=== PATIENT | female | born 1950 | race African-American/Black ===

== ENCOUNTER 2016-11-21 21:20 | Emergency (ER) | payer MEDICARE, MEDICAID ==
[~2016-11-21] VITALS: Ht 167.6 cm; Wt 95.3 kg
[~2016-11-21 21:20] MED LIST: ATEN50TA PO; HYDR25TA PO; LISI10TA5 PO; POTA10TA69 PO
[2016-11-21] MEDS ORDERED: ACETAMINOPHEN 325MG TABLET PO ONE (22:30)
[2016-11-22] MEDS ORDERED: BACITRACIN ZINC OINT UDPKT TOP ONE (00:45)
[2016-11-22 01:00] VITALS: BP 138/79
== END 2016-11-22 01:15 | disposition home or self-care (01) ==
LOC: ER 21:21
DX: M25.561 Pain in right knee (principal); M25.562 Pain in left knee; M25.552 Pain in left hip; I10 Essential (primary) hypertension; E11.9 Type 2 diabetes mellitus without complications; Z91.013 Allergy to seafood; Z88.5 Allergy status to narcotic agent; Z79.899 Other long term (current) drug therapy
CPT/HCPCS: 73560; 99284

== ENCOUNTER 2018-02-17 13:41 | Emergency (ER) | payer MEDICARE, MEDICAID ==
[~2018-02-17] VITALS: Ht 167.6 cm; Wt 102.0 kg
[~2018-02-17 13:41] MED LIST changes: +POTA10TA11 PO; -POTA10TA69 PO
[2018-02-17] MEDS ORDERED: ACETAMINOPHEN 325MG TABLET PO STA (14:04)
[2018-02-17 15:16] LABS: BASOPHILS % 0.6 % (0.0-2.0); EOSINOPHILS % 3.2 % (0.0-5.0); HEMATOCRIT. 37.4 % (36.0-48.0); HEMOGLOBIN. 12.6 g/dL (12.0-16.0); LYMPHOCYTES % 41.5 % (20.0-50.0); MEAN CORPUSCULAR HEMOGLOBIN 28.5 pg (28.0-32.0); MEAN CORPUSCULAR VOLUME 84.7 fL (81.0-99.0); MEAN PLATELET VOLUME 8.8 fl (7.4-10.4); MONOCYTES % 10.7 % (2.0-8.0); PLATELET 244 x1000/uL (130-400); RED BLOOD CELL COUNT 4.41 mill/uL (4.2-5.4); RED CELL DISTRIBUTION WIDTH 15.3 % (11.6-14.6)
[2018-02-17 15:17] LABS: CHLORIDE 106 mEq/L (98-107); INR 1.1; PARTIAL THROMBOPLASTIN TIME 25.4 sec (23.4-31.0); PROTHROMBIN TIME 11.3 sec (9.4-11.6)
[2018-02-17 15:17] LABS: CLARITY URINE CLOUDY (CLEAR); COLOR URINE YELLOW (YELLOW); KETONES URINE NEGATIVE (NEGATIVE); LEUKOCYTE ESTERASE URINE NEGATIVE (NEGATIVE); NITRITE URINE NEGATIVE (NEGATIVE); OCCULT BLOOD URINE NEGATIVE (NEGATIVE); PH URINE 6.5 (4.5-8.0); PROTEIN URINE NEGATIVE (NEGATIVE); SPECIFIC GRAVITY URINE 1.014 (1.005-1.030); UROBILINOGEN URINE 0.2 E.U./dL (0.2-1.0)
[2018-02-17 16:11] VITALS: BP 135/72
== END 2018-02-17 16:13 | disposition home or self-care (01) ==
LOC: ER 13:41
DX: I10 Essential (primary) hypertension (principal); R51 Headache; N39.0 Urinary tract infection, site not specified; Z88.5 Allergy status to narcotic agent; Z91.013 Allergy to seafood
CPT/HCPCS: 36415; 71045; 80053; 81003; 82962; 83880; 84484; 85025; 85610; 85730; 93005; 99285

== ENCOUNTER 2019-07-11 16:40 | Emergency (ER) | payer MEDICARE, MEDICAID ==
[~2019-07-11] VITALS: Ht 170.2 cm; Wt 91.0 kg
[2019-07-11 19:51] VITALS: BP 154/62
== END 2019-07-11 19:52 | disposition home or self-care (01) ==
LOC: ER 16:40
DX: S83.92XA Sprain of unspecified site of left knee, initial encounter (principal); I10 Essential (primary) hypertension; Z88.5 Allergy status to narcotic agent; Z91.013 Allergy to seafood; Z98.890 Other specified postprocedural states; X58.XXXA Exposure to other specified factors, initial encounter; Y93.89 Activity, other specified; Y92.012 Bathroom of single-family (private) house as the place of occurrence of the external cause
CPT/HCPCS: 73560; 99283

== ENCOUNTER 2019-07-25 15:24 | Emergency (ER) | payer MEDICARE, MEDICAID ==
[~2019-07-25] VITALS: Ht 167.6 cm; Wt 102.0 kg
[2019-07-25 16:28] VITALS: BP 150/69
== END 2019-07-25 17:19 | disposition left against medical advice (07) ==
LOC: ER 15:24
DX: Z53.21 Procedure and treatment not carried out due to patient leaving prior to being seen by health care provider (principal)